=== PATIENT | male | born 2000 | race Caucasian/White ===

== ENCOUNTER 2020-06-11 14:06 | Emergency (ER) | payer BC, SELFPAY ==
[2020-06-11 14:09] VITALS: BP 112/74; PULSE 67; RESP 16; TEMP 36.5; O2SAT 99; BMI 21.5
[2020-06-11 14:13] VITALS: BP 112/74; PULSE 60; RESP 16; TEMP 36.5; O2SAT 98
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
[2020-06-11] MEDS: Diphth,Pertuss(Acell),Tet Vac 0.5 ML Vial IM (14:46)
--- NOTE | 2020-06-11 15:11 | ED.DEP ---
ED Disposition - Plan for ED Patient: Instructions: ED Head Injury (Adult), ED Concussion, ED Contusion, Upper Extremity, ED Laceration Small or ... Additional Instructions: See your doctor in 3-5 days for a wound check
== END 2020-06-11 15:19 | disposition home or self-care (01) ==
LOC: ED 15:11
PROVIDERS: Emergency Provider Emergency Medicine; PCP Pediatrics
DX: S06.0X0A Concussion without loss of consciousness, initial encounter (principal); S01.81XA Laceration without foreign body of other part of head, initial encounter; S50.12XA Contusion of left forearm, initial encounter; V86.59XA Driver of other special all-terrain or other off-road motor vehicle injured in nontraffic accident, initial encounter; Y93.9 Activity, unspecified; Y92.9 Unspecified place or not applicable
CPT/HCPCS: 70450; 73090; 90715; 99283